=== PATIENT | female | born 1950 | race African-American/Black ===

== ENCOUNTER → 2017-03-10 | Day surgery (SDC) | payer MEDICARE, OTHER ==
[~2017-03-10] MED LIST: ACETAMINOPHEN 1000 MG/100 ML 100 ML IV ONE; BUPIVACAINE/EPINEPHRINE 0.25% PF 30 ML VIAL ONE; LIDOCAINE 1.5%/EPINEPHrine 1:200,000 PF SOLN 30 ML AMP ONE; ONDANSETRON HCL 4 MG/2 ML VIAL IV PUSH ONE; PROPOFOL 200 MG/20 ML AMP IV ONE
--- NOTE | 2017-03-10 09:16 | TN ---
cc: MAN YOUNGBLOOD MD DATE OF SURGERY: 03/10/2017 PREOPERATIVE DIAGNOSIS Posterior neck lipoma. POSTOPERATIVE DIAGNOSIS 5 cm posterior neck lipoma. PROCEDURE Excision posterior neck lipoma. 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 [employer] OPERATIONS SPECIALIST: Staff ESTIMATED BLOOD LOSS 5 cc PROCEDURE IN DETAIL The patient was taken to the operating room, placed in the supine position and general anesthesia was induced. She was then placed in the right lateral position using a jane bag. The posterior neck was prepped and draped in usual sterile fashion. A surgical time-out was performed to verify correct patient, procedure and site. The local anesthetic was injected skin and subcutaneous tissue and the scar from a previous excision. The midportion of the scar was excised. Subcutaneous tissue divided with electrocautery. The lipoma was encountered. The lipoma was a recurrent lipoma and was stuck to the surrounding and underlying tissue. It is down to the underlying muscle. This was carefully circumferentially excised with electrocautery and was approximately 5 cm and in diameter. Hemostasis was achieved. The cavity was irrigated. The wound was closed in two layers. The deep dermal layer with simple interrupted buried 3-0 Vicryl and skin closed subcuticular 4-0 Monocryl and Dermabond. The patient tolerated procedure well as x-ray and taken to PACU in stable condition. Man Youngblood MD JPAngela/roman /9:00 AM /9:08 AM [facility]
== END | disposition home or self-care (01) ==
LOC: ESDC 06:41
PROVIDERS: ATTEND Surgery
DX: D17.0 Benign lipomatous neoplasm of skin and subcutaneous tissue of head, face and neck (principal)
CPT/HCPCS: 00300; 21552; 88304; J0131; J2405; J3010